=== PATIENT | female | born 1935 | race Caucasian/White ===

== ENCOUNTER → 2016-05-13 | Outpatient (CLI) | payer MEDICARE | LOC: CT 10:45 | DX: R10.9 Unspecified abdominal pain (principal); N28.89 Other specified disorders of kidney and ureter; R93.421 Abnormal radiologic findings on diagnostic imaging of right kidney | CPT/HCPCS: Q9962 ==

== ENCOUNTER → 2016-05-25 | Outpatient (CLI) | payer MEDICARE | LOC: US 12:27 | DX: N28.89 Other specified disorders of kidney and ureter (principal) ==